=== PATIENT | female | born 1980 | race African-American/Black ===

== ENCOUNTER 2018-08-25 10:50 | Emergency (ER) | payer OTHER ==
[2018-08-25 10:58] VITALS: BP 118/63; PULSE 87; TEMP 98.4; BMI 29.9
--- NOTE | 2018-08-25 11:37 | PDOC ---
History of Present Illness - General Chief Complaint: [facility] [place] Stated Complaint: PCP SENT/ TEST Time Seen by Provider: 08/25/18 11:18 History Source: Patient (38y/o F sent by PCP for preg testing prior to CT imaging, LMP 07/17/18) Past History - Travel Traveled outside of the country in the last 30 days: No Close contact w/someone who was outside of country & ill: No - Past Medical History Allergies/Adverse Reactions: Allergies Allergy/AdvReac Type Severity Reaction Status Date / Time Iodine and Iodide Containing Allergy Verified 08/25/18 10:59 Produc Home Medications: Ambulatory Orders NK [No Known Home Medication] 08/25/18 COPD: No CHF: No DVT: No - Surgical History Gastric Stapling: No - Immunization History Immunization Up to Date: No - Suicide/Smoking/Psychosocial Hx Smoking History: Current every day smoker Have you smoked in the past 12 months: No Information on smoking cessation initiated: No Hx Alcohol Use: No Drug/Substance Use Hx: No Review of Systems - Review of Systems Able to Perform ROS?: No Is the patient limited Stateless proficient: No Constitutional: No: Chills, Fever ABD/GI: Yes: Other (no vaginal bleed). No: Abdominal Distended, Abd. Pain w/ defecation, Blood Streaked Bowels, Diarrhea, Difficulty Swallowing, Nausea, Vomiting *Physical Exam - Vital Signs Last Vital Signs Temp Pulse Resp BP Pulse Ox 98.4 F 87 18 118/63 100 08/25/18 10:54 08/25/18 10:54 08/25/18 10:54 08/25/18 10:54 08/25/18 10:54 - Physical Exam General Appearance: Yes: Nourished Gastrointestinal/Abdominal: positive: Normal Bowel Sounds Neurologic: positive: neon glass bender II-XII NML intact, Fully Oriented, Alert Moderate Sedation - Procedure Monitoring Vital Signs: Procedure Monitoring Vital Signs Temperature 98.4 F 08/25/18 10:54 Pulse Rate 87 08/25/18 10:54 Respiratory Rate 18 08/25/18 10:54 Blood Pressure 118/63 08/25/18 10:54 O2 Sat by Pulse Oximetry (%) 100 08/25/18 10:54 ED Treatment Course - ADDITIONAL ORDERS Additional order review: Laboratory Results 08/25/18 10:56 Urine HCG, Qual Positive Medical Decision Making - Medical Decision Making 08/25/18 11:39 38y/o F , sent by PCP for test prior to CT imaging scheduled for today. PT reports of ongoing abd issue X 1yr. Her LMP 07/17/18. She is sexually active. She denies pelvic pain or vaginal bleeding today + today, not desired per pt, offered Rx for vitamins--pt refused contacted Radiology, procedure will be cancelled, PCP had to re-order test if he /she thinks it is warranted given new status [facility] appt number given to pt in case she changes her mind no Motrin/alcohol/smoking also advised 08/25/18 11:58 *DC/Admit/Observation/Transfer Diagnosis at time of Disposition: Qualifiers: Weeks of gestation: 8 weeks Qualified Code(s): Z3A.08 - 8 weeks gestation of - Discharge Dispostion Disposition: HOME Condition at time of disposition: Stable Decision to Admit order: No - Referrals Referrals: Emmanuel Becerra MD [Primary Care Provider] - Kathy Almendarez MD [Staff Physician] - 7 days (new OB appointment if pregnacy is desired) - Patient Instructions Additional Instructions: test came back positive today. The CT imaging international units a scheduled for will be canceled per the radiology please follow-up which a primary care doctor if the CAT scan is still warranted. Your doctor has to contact the radiology department to override the study. Follow-up which are primary care doctor [facility] for care. Please return to the emergency room if you have any pelvic pain or vaginal bleed. - Post Discharge Activity
== END 2018-08-25 11:48 | disposition home or self-care (01) ==
LOC: JERFT 10:50
DX: Z32.01 Encounter for pregnancy test, result positive (principal); Z3A.01 Less than 8 weeks gestation of pregnancy
CPT/HCPCS: 84703; 99281-25